=== PATIENT | female | born 1995 | race Caucasian/White ===

== ENCOUNTER 2018-12-04 20:09 | Emergency (ER) | payer MEDICAID ==
[2018-12-04] MEDS ORDERED: diphenhydrAMINE 50 MG/ML SDV IM ONE (20:26)
[2018-12-04] MEDS ORDERED: Ondansetron 4 MG Tab.DIS PO ONE (20:26)
[2018-12-04] MEDS ORDERED: Ketorolac 30 MG/ML SDV IM ONE (20:26)
--- NOTE | 2018-12-04 20:43 | EDM.PDOC ---
ED HPI GENERAL MEDICAL PROBLEM - General Chief Complaint: Headache Stated Complaint: MIGRAINE Time Seen by Provider: 12/04/18 20:13 Source of Information: Reports: Patient, Family History Limitations: Reports: No Limitations - History of Present Illness INITIAL COMMENTS - FREE TEXT/NARRATIVE: Patient brought into the ER with complaints of headache. She states it started around 2 pm and has progressively worsened with nausea and vomiting. Her grandmother did today and patient has history of anxiety with depression. She states that it starts in the front and is all around her head. She describes it as throbbing. Loud sounds and bright lights worsen it. She denies any fever, chills, chest pain, states she is having a hard time catching her breath. She denies any urinary or bowel problems. No pain with urination, no bloody stools. No diarrhea. Onset: Today, Sudden Duration: Getting Worse Location: Reports: Head Quality: Reports: Ache, Throbbing Severity: Severe Improves with: Reports: None Worsens with: Reports: Other (lights, sounds, movement) Associated Symptoms: Reports: Nausea/Vomiting - Related Data Allergies Allergy/AdvReac Type Severity Reaction Status Date / Time No Known Allergies Allergy Verified 05/31/18 15:14 Home Meds: Home Meds Norethindrone 0.5 mg PO DAILY 05/31/18 [History] Past Medical History [employer] History: Reports: Other (See Below) Other [employer] History: cysts - Past Surgical History HEENT Surgical History: Reports: Oral Surgery ED ROS GENERAL - Review of Systems Review Of Systems: See Below Constitutional: Reports: No Symptoms HEENT: Reports: No Symptoms Respiratory: Reports: Other (feels like she can't catch her breath) Cardiovascular: Reports: No Symptoms Endocrine: Reports: No Symptoms GI/Abdominal: Reports: Nausea, Vomiting Musculoskeletal: Reports: No Symptoms Skin: Reports: No Symptoms Neurological: Reports: Headache Psychiatric: Reports: No Symptoms Hematologic/Lymphatic: Reports: No Symptoms Immunologic: Reports: No Symptoms - Physical Exam Exam: See Below Exam Limited By: No Limitations General Appearance: Alert, WD/WN, Moderate Distress Eye Exam: Bilateral Eye: EOMI, Normal Inspection, PERRL Ears: Normal TMs Nose: Normal Inspection, Normal Mucosa, No Blood Throat/Mouth: Normal Inspection, Normal Lips, Normal Teeth, Normal Gums, Normal Oropharynx, Normal Voice, No Airway Compromise Head Exam: Atraumatic, Normocephalic Neck: Normal Inspection, Supple, Non-Tender, Full Range of Motion Respiratory/Chest: No Respiratory Distress, Lungs Clear, Normal Breath Sounds, No Accessory Muscle Use, Chest Non-Tender Cardiovascular: Normal Peripheral Pulses, Regular Rate, Rhythm, No Edema, No Gallop, No JVD, No Murmur, No Rub GI/Abdominal: Normal Bowel Sounds, Soft, Non-Tender, No Organomegaly, No Distention, No Abnormal Bruit, No Mass Neuro Exam (Abbreviated): Alert, Oriented, CN II-XII Intact, Normal Cognition, Normal Gait, Normal Reflexes, No Motor/Sensory Deficits Back Exam: Normal Inspection, Full Range of Motion, NT Extremities: Normal Inspection, Normal Range of Motion, Non-Tender, No Pedal Edema, Normal Capillary Refill Psychiatric: Anxious Skin Exam: Warm, Intact, Normal Color, No Rash, Diaphoretic Course - Orders/Labs/Meds Meds: Medications Discontinued Medications Generic Name Dose Route Start Last Admin Trade Name Medhatq PRN Reason Stop Dose Admin Chlorpromazine HCl 25 mg 12/04/18 20:26 Thorazine IM 12/04/18 20:27 ONETIME ONE Diphenhydramine HCl 25 mg 12/04/18 20:26 Benadryl IM 12/04/18 20:27 ONETIME ONE Ketorolac Tromethamine 30 mg 12/04/18 20:26 Toradol IM 12/04/18 20:27 ONETIME ONE Ondansetron HCl 4 mg 12/04/18 20:26 Zofran Odt PO 12/04/18 20:27 ONETIME ONE - Re-Assessments/Exams Free Text/Narrative Re-Assessment/Exam: 12/04/18 22:04 Patient reassessed and pain has greatly subsided. Nausea is much better and she is wanting to go home. Questions answered and both patient and mother verbalize understanding. Departure - Departure Time of Disposition: 21:44 Disposition: Home, Self-Care 01 Condition: Good Clinical Impression: Migraine - Discharge Information *PRESCRIPTION DRUG MONITORING PROGRAM REVIEWED*: Not Applicable *COPY OF PRESCRIPTION DRUG MONITORING REPORT IN PATIENT ELIA: Not Applicable Instructions: Migraine Headache, [id number] Referrals: Ene Williamson PA-C [Primary Care Provider] - Forms: ED Department Discharge Additional Instructions: Plan 1. Make sure to stay well hydrated 2. Get plenty of rest. This includes eye rest. Avoid TV and any tablets or phone use for the next 12-24 hours 3. Migraines can be triggered by stress and anxiety. Make sure to talk with whomever makes you feel comfortable after the loss of your grandmother 4. Take ibuprofen or excerin migraine as soon as you start to feel like a headache is beginning 5. If you continue to have recurrent headaches, start a journal to try to determine a trigger that can your headaches 6. Known triggers can be excess stress, caffeine, cigarettes, drugs, alcohol, chocolate, intense exercise 7. Please call if you have any questions or concerns and follow up as needed with primary care - Problem List & Annotations (1) Migraine SNOMED Code(s): 71722940 Code(s): G43.909 - MIGRAINE, UNSP, NOT INTRACTABLE, WITHOUT STATUS MIGRAINOSUS Status: Acute Priority: Medium Current Visit: Yes - Problem List Review Problem List Initiated/Reviewed/Updated: Yes - Assessment/Plan Assessment:: migraine headache Plan: Plan 1. Make sure to stay well hydrated 2. Get plenty of rest. This includes eye rest. Avoid TV and any tablets or phone use for the next 12-24 hours 3. Migraines can be triggered by stress and anxiety. Make sure to talk with whomever makes you feel comfortable after the loss of your grandmother 4. Take ibuprofen or excerin migraine as soon as you start to feel like a headache is beginning 5. If you continue to have recurrent headaches, start a journal to try to determine a trigger that can your headaches 6. Known triggers can be excess stress, caffeine, cigarettes, drugs, alcohol, chocolate, intense exercise 7. Please call if you have any questions or concerns and follow up as needed with primary care
== END 2018-12-04 21:44 | disposition home or self-care (01) ==
LOC: VM.ED 20:09
DX: G43.909 Migraine, unspecified, not intractable, without status migrainosus (principal); Z79.899 Other long term (current) drug therapy
CPT/HCPCS: 96372; 99283; A9270-GY; J1200; J1885; J3230

== ENCOUNTER 2022-06-08 22:23 | Emergency (ER) | payer MEDICAID ==
[2022-06-08] MEDS ORDERED: cefTRIAXone 1 GM, Lidocaine 1% 2.1 ML IM ONE ×2 (22:48)
[2022-06-08] MEDS ORDERED: Phenazopyridine 95 MG Tab PO SCH (23:00)
[2022-06-08] MEDS ORDERED: Lidocaine 2% 5 ML SDV INJECT ONE (23:25)
== END 2022-06-08 23:37 | disposition home or self-care (01) ==
LOC: VM.ED 22:23
DX: N39.0 Urinary tract infection, site not specified (principal)
CPT/HCPCS: 81001; 87086; 87088; 87186; 96372; 99284; A9270-GY; J0696

== ENCOUNTER 2022-10-31 00:02 | Emergency (ER) | payer MEDICAID ==
[2022-10-31] MEDS: Ibuprofen 200 MG Tab PO ONE (00:15)
== END 2022-10-31 00:59 | disposition home or self-care (01) ==
LOC: VM.ED 00:02
DX: S16.1XXA Strain of muscle, fascia and tendon at neck level, initial encounter (principal); S00.83XA Contusion of other part of head, initial encounter; Y04.0XXA Assault by unarmed brawl or fight, initial encounter
CPT/HCPCS: 72125; 99283; 99284; A9270-GY